=== PATIENT | male | born 1990 | race Asian ===

== ENCOUNTER 2022-08-16 23:55 | Emergency (ER) | payer OTHER, MEDICAID ==
[~2022-08-16] VITALS: Ht 172.7 cm; Wt 61.3 kg
[2022-08-16 23:56] VITALS: BP 126/77; PULSE 80; RESP 16; TEMP 97.9
[2022-08-17 01:39] LABS: COVID AG,FIA SOURCE NASAL SWAB
[2022-08-17 01:52] LABS: RAPID GROUP A STREP NEGATIVE (NEGATIVE)
[2022-08-17 02:01] LABS: INFLUENZA TYPE A NEGATIVE FOR TYPE A (NEGATIVE); INFLUENZA TYPE B NEGATIVE FOR TYPE B (NEGATIVE)
== END 2022-08-17 02:10 | disposition home or self-care (01) ==
LOC: EMS 23:55
DX: J02.9 Acute pharyngitis, unspecified (principal); Z87.891 Personal history of nicotine dependence; Z98.890 Other specified postprocedural states; Z20.822 Contact with and (suspected) exposure to COVID-19
CPT/HCPCS: 87430; 87804; 99283

== ENCOUNTER 2022-08-19 09:37 | Emergency (ER) | payer OTHER, MEDICAID ==
[~2022-08-19] VITALS: Ht 172.7 cm; Wt 70.5 kg
[2022-08-19 09:40] VITALS: TEMP 98.9
[2022-08-19] MEDS ORDERED: ACETAMINOPHEN 500 MG TABLET PO ONE (10:15)
[2022-08-19] MEDS ORDERED: KETOROLAC TROMETHAMINE 30 MG/ML VIAL IVP ONE (10:15)
[2022-08-19] MEDS ORDERED: IOHEXOL 350 MG/ML 100 ML VIAL ONE (10:36)
[2022-08-19] MEDS ORDERED: SODIUM CHLORIDE 0.9% 100 ML ONE (10:36)
[2022-08-19 10:52] LABS: COVID AG,FIA SOURCE NASOPHARYNGEAL
[2022-08-19 10:53] LABS: BASOPHILS % (AUTO) 0.4 % (0.0-2.0); EOSINOPHILS % (AUTO) 0.6 % (1.0-6.0); HEMATOCRIT 49.8 % (41-53); HEMOGLOBIN 16.9 g/dL (13.5-17.5); LYMPHOCYTES # (AUTO) 2.5 K/uL (1.0-4.8); LYMPHOCYTES % (AUTO) 27.4 % (22.0-44.0); MEAN CORPUSCULAR HEMOGLOBIN 31.5 pg (26.0-34.0); MEAN CORPUSCULAR VOLUME 93 fL (80-100); MONOCYTES # (AUTO) 0.6 K/uL (0.1-1.0); NEUTROPHILS # (AUTO) 6.1 K/uL (1.8-7.7); NEUTROPHILS % (AUTO) 65.6 % (40.0-70.0); PLATELET COUNT (AUTO) 225 K/uL (150-450); RED BLOOD CELL COUNT(AUTO) 5.37 MIL/uL (4.50-5.90); RED CELL DISTRIBUTION WIDTH 13.2 % (11.5-14.5)
[2022-08-19 11:02] LABS: ANION GAP 11 mmol/L (8-16); CALCIUM, TOTAL 9.4 mg/dL (8.8-10.5); CARBON DIOXIDE 29 mmol/L (22-29); CHLORIDE 102 mmol/L (98-107); CREATININE 1.07 mg/dL (0.60-1.30); GLOMERULAR FILTR. RATE CALC > 60 mL/min (>60); GLUCOSE,RANDOM 96 mg/dL (70-110); POTASSIUM 3.7 mmol/L (3.5-5.1); SODIUM SERUM 142 mmol/L (136-145)
[2022-08-19 11:07] LABS: ALANINE AMINOTRANSFERASE 77 U/L (12-78); ALBUMIN 4.4 g/dL (3.4-5.0); ALKALINE PHOSPHATASE 88 U/L (46-116); ASPARTATE AMINOTRANSFERASE 32 U/L (15-37); BILIRUBIN,TOTAL 0.5 mg/dL (0.1-1.0); TOTAL PROTEIN, SERUM 9.4 g/dL (6.4-8.2)
[2022-08-19 11:19] LABS: INFLUENZA TYPE A NEGATIVE FOR TYPE A (NEGATIVE); INFLUENZA TYPE B NEGATIVE FOR TYPE B (NEGATIVE)
[2022-08-19 11:22] LABS: RAPID GROUP A STREP NEGATIVE (NEGATIVE)
[2022-08-19 12:45] VITALS: BP 113/77; PULSE 85; RESP 16
== END 2022-08-19 13:12 | disposition home or self-care (01) ==
LOC: EMS 09:38
DX: J02.9 Acute pharyngitis, unspecified (principal); Z87.891 Personal history of nicotine dependence; Z20.822 Contact with and (suspected) exposure to COVID-19
CPT/HCPCS: 99285; 96374; 70491; 87426; 80053; 85025; 86308; 87430; 87804; 36415; J1885; Q9967; J7050

== ENCOUNTER → 2022-08-31 | Outpatient (CLI) | payer OTHER, MEDICAID ==
[2022-08-31 09:27] LABS: BASOPHILS % (AUTO) 0.5 % (0.0-2.0); EOSINOPHILS % (AUTO) 1.9 % (1.0-6.0); HEMATOCRIT 50.8 % (41-53); HEMOGLOBIN 16.8 g/dL (13.5-17.5); LYMPHOCYTES # (AUTO) 2.8 K/uL (1.0-4.8); LYMPHOCYTES % (AUTO) 32.8 % (22.0-44.0); MEAN CORPUSCULAR HEMOGLOBIN 30.3 pg (26.0-34.0); MEAN CORPUSCULAR HGB CONC 33.1 G/dL (31.0-37.0); MEAN CORPUSCULAR VOLUME 92 fL (80-100); MONOCYTES # (AUTO) 0.5 K/uL (0.1-1.0); MONOCYTES % (AUTO) 5.9 % (2.0-9.0); NEUTROPHILS # (AUTO) 5.1 K/uL (1.8-7.7); NEUTROPHILS % (AUTO) 58.9 % (40.0-70.0); PLATELET COUNT (AUTO) 318 K/uL (150-450); RED BLOOD CELL COUNT(AUTO) 5.54 MIL/uL (4.50-5.90); RED CELL DISTRIBUTION WIDTH 13.2 % (11.5-14.5)
[2022-08-31 09:40] LABS: ALANINE AMINOTRANSFERASE 54 U/L (12-78); ALBUMIN 4.4 g/dL (3.4-5.0); ALKALINE PHOSPHATASE 69 U/L (46-116); ANION GAP 8 mmol/L (8-16); ASPARTATE AMINOTRANSFERASE 28 U/L (15-37); BILIRUBIN,TOTAL 0.3 mg/dL (0.1-1.0); CALCIUM, TOTAL 9.1 mg/dL (8.8-10.5); CARBON DIOXIDE 30 mmol/L (22-29); CHLORIDE 102 mmol/L (98-107); CHOL/HDL RATIO 1.8 (4.2-7.3); CHOLESTEROL 87 mg/dL (131-200); CREATININE 1.17 mg/dL (0.60-1.30); GLOMERULAR FILTR. RATE CALC > 60 mL/min (>60); GLUCOSE,RANDOM 92 mg/dL (70-110); HDL CHOLESTEROL 49 mg/dL (40-60); LDL CHOL (CALC.) 23 mg/dL (0-130); POTASSIUM 3.8 mmol/L (3.5-5.1); SODIUM SERUM 140 mmol/L (136-145); TOTAL PROTEIN, SERUM 8.9 g/dL (6.4-8.2); TRIGLYCERIDES 76 mg/dL (15-150)
[2022-08-31 10:00] LABS: VITAMIN B12 LEVEL 569 pg/mL (211-911); VITAMIN D,TOTAL (25-0H) 28 ng/mL (30-100)
[2022-08-31 10:02] LABS: FOLATE SERUM > 24.0 ng/mL (5.4-)
[2022-08-31 11:06] LABS: HEMOGLOBIN A1C 5.7 % (3.8-5.6)
== END | disposition home or self-care (01) ==
LOC: LABMN 08:43
PROVIDERS: ATTEND Internal Medicine Geriatric Medicine
DX: Z00.00 Encounter for general adult medical examination without abnormal findings (principal)
CPT/HCPCS: 80053; 80061; 82043; 82306; 82570; 82607; 82746; 83036; 85025

== ENCOUNTER 2024-11-02 02:47 | Emergency (ER) | payer MEDICAID, OTHER ==
[~2024-11-02] VITALS: Ht 172.7 cm; Wt 70.5 kg
[2024-11-02] MEDS ORDERED: SULF1TAB42 PO (02:52)
[2024-11-02 03:03] VITALS: BP 113/74; PULSE 84; RESP 15; TEMP 98.5; O2SAT 100
[2024-11-02] MEDS: SULFAMETHOX/TRIMETH DS 800-160 MG/TABLET PO ONE (03:08)
== END 2024-11-02 03:31 | disposition home or self-care (01) ==
LOC: EMS 02:47
DX: H00.014 Hordeolum externum left upper eyelid (principal); Z90.89 Acquired absence of other organs; Z87.891 Personal history of nicotine dependence
CPT/HCPCS: 99283